=== PATIENT | female | born 1990 | race Caucasian/White ===

== ENCOUNTER 2020-09-13 11:45 | Emergency (ER) | payer OTHER, SELFPAY ==
[2020-09-13 11:54] VITALS: BP 124/94; PULSE 64; RESP 16; TEMP 36.9; O2SAT 99
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
== END 2020-09-13 12:31 | disposition home or self-care (01) ==
PROVIDERS: Emergency Provider Nurse Practitioner
DX: M25.511 Pain in right shoulder (principal)
CPT/HCPCS: 99213; G0463

== ENCOUNTER 2021-02-15 12:15 | Emergency (ER) | payer OTHER, SELFPAY ==
[2021-02-15 12:22] VITALS: BP 128/79; PULSE 86; RESP 16; TEMP 37.9; O2SAT 99
--- NOTE | 2021-02-15 13:21 | ED.EAR ---
HPI - Ear Problem General Chief complaint: Ear Stated complaint: ear pain Time Seen by Provider: 02/15/21 13:21 Source: patient Mode of arrival: ambulatory Limitations: no limitations History of Present Illness HPI Narrative: 30-year-old female presenting for complaint of bilateral ear pain, sinus congestion and pressure, and headache. Onset yesterday. Endorses 1 episode of vomiting today. She denies nausea, cough, shortness of breath, sore throat, fever or chills at this time. She has not taken anything for symptoms. MD Complaint: ear pain Related Data Allergies Allergy/AdvReac Type Severity Reaction Status Date / Time No Known Allergies Allergy Unverified 02/15/21 12:42 Review of Systems Review of Systems: CONSTITUTIONAL: Denies malaise, chills, sweats, fever. EYES: Denies visual changes, redness, or discharge. ENT: Reports rhinorrhea, congestion, sinus pain, otalgia CARDIOVASCULAR: Denies chest pain, palpitations, or edema. RESPIRATORY: Denies cough, sob; endorses post nasal drainage. GASTROINTESTINAL: Denies abdominal pain, nausea, vomiting, diarrhea SKIN: Denies rash or itching. MUSCULOSKELETAL: Denies myalgia. NEUROLOGIC: Denies headache. PMFSH Comments At time of signature, I have reviewed and agree with nursing past medical, surgical, social and family history unless otherwise noted. Please see nursing chart for further information. There is no relevant family history pertinent to the presenting complaint Exam Narrative: GENERAL: Ill-appearing, nontoxic no acute distress. HEAD: Normocephalic EYES: PERRLA, conjunctivae clear ENT: Mucous membranes moist. TM pearly meza with dull light reflex bilaterally, bilateral effusion; no tragal tenderness. Oropharynx erythematous without lesions. Tonsils enlarged and without exudate, no drooling, no hoarseness, no trismus, uvula midline. NECK: Supple. No lymphadenopathy CHEST: Clear to auscultation, breath sounds equal. No wheezing, rhonchi, rales, or stridor. No respiratory distress, speaks in full sentences. HEART: Regular rate and rhythm. No murmur heard. SKIN: Warm, dry, no rash. NEURO: Alert and oriented x3. PSYCH: Normal mood and affect Course Course Emergency Course: Patient is aware of diagnosis, understands and agrees to treatment plan. Anticipatory guidance given. Patient agrees to follow-up as directed and is aware of reasons to seek care at the emergency department. Portions of this record may have been created with voice recognition software Level of Care: Express Care Visit Vital Signs Vital signs: Vital Signs Temperature 100.2 F H 02/15/21 12:22 Pulse Rate 86 02/15/21 12:22 Respiratory Rate 16 02/15/21 12:22 Blood Pressure 128/79 02/15/21 12:22 Pulse Oximetry 99 02/15/21 12:22 Temperature 100.2 F H 02/15/21 12:22 Pulse Rate 86 02/15/21 12:22 Respiratory Rate 16 02/15/21 12:22 Blood Pressure 128/79 02/15/21 12:22 Pulse Oximetry 99 02/15/21 12:22 Reviewed Medical Decision Making Vital Signs Vital Signs: Vital Signs Temperature 100.2 F H 02/15/21 12:22 Pulse Rate 86 02/15/21 12:22 Respiratory Rate 16 02/15/21 12:22 Blood Pressure 128/79 02/15/21 12:22 Pulse Oximetry 99 02/15/21 12:22 Temperature 100.2 F H 02/15/21 12:22 Pulse Rate 86 02/15/21 12:22 Respiratory Rate 16 02/15/21 12:22 Blood Pressure 128/79 02/15/21 12:22 Pulse Oximetry 99 02/15/21 12:22 Discharge Plan Discharge Clinical Impression: Otalgia, Acute rhinosinusitis Patient Disposition: Home, Self-Care Condition: Stable Instructions: Antibiotic Form, Rhinosinusitis (DC) Additional Instructions: Rest. Drink plenty of fluids. Tylenol 1000mg every 8 hours as needed [id number] Zyrtec, Flonase, saline spray as needed. Return if symptoms worsen. Prescriptions: New cetirizine [Zyrtec] 10 mg tablet 10 mg PO DAILY PRN (Reason: congestion) Qty: 10 RF: 0 fluticasone propionat
== END 2021-02-15 13:38 | disposition home or self-care (01) ==
PROVIDERS: Emergency Provider Nurse Practitioner Family
DX: H92.03 Otalgia, bilateral (principal); J00 Acute nasopharyngitis [common cold]; J01.90 Acute sinusitis, unspecified
CPT/HCPCS: 99213; G0463

== ENCOUNTER 2021-02-21 12:39 | Emergency (ER) | payer OTHER, SELFPAY ==
--- NOTE | 2021-02-21 12:48 | ED.DENTAL ---
HPI - Dental/Oral General Chief complaint: Dental/Oral Stated complaint: tooth pain Time Seen by Provider: 02/21/21 13:08 Mode of arrival: ambulatory Limitations: no limitations History of Present Illness HPI Narrative: 30-year-old female presents concern for dental pain. Reports she thought she had a sinus problems but the pain has now radiated to her teeth and jaws. She reports problem with bad teeth. She reports she has been taking Tylenol. She reports she has a very bad taste in her mouth. She denies fever, difficulty swallowing. MD Complaint: tooth pain Related Data Allergies Allergy/AdvReac Type Severity Reaction Status Date / Time No Known Allergies Allergy Verified 02/21/21 13:06 Review of Systems Review of Systems: CONSTITUTIONAL: Denies malaise, chills, sweats, or fever. EYES: Denies visual changes ENT: Denies rhinorrhea, congestion, sinus pain, otalgia or sore throat. Reports generalized dental pain CARDIOVASCULAR: Denies chest pain, palpitations RESPIRATORY: Denies cough or dyspnea. SKIN: Denies rash or itching. MUSCULOSKELETAL: Denies myalgia. NEUROLOGIC: Denies numbness, weakness, or headache. All systems reviewed & are unremarkable except as noted in HPI and below PMFSH Comments At time of signature, agree with nursing past medical, surgical, social and family history. There is no relevant family history pertinent to the presenting complaint Exam Narrative: GENERAL: Well-appearing, well-nourished, and in no acute distress. HEAD: Normocephalic, atraumatic. EYES: PERRLA, sclera clear ENT: Nares clear. Mucous membranes moist. Oropharynx without erythema or lesions. Tonsils not enlarged and without exudate. Many missing teeth, broken teeth, caries NECK: Supple. No lymphadenopathy. CHEST: No respiratory distress. Speaks in full sentences. HEART: Regular rate and rhythm. SKIN: Warm, dry, no visible rash. NEURO: Alert and oriented x3. PSYCH: Normal mood and affect Course Course Emergency Course: Patient is aware of diagnosis, understands and agrees to treatment plan. Anticipatory guidance given. Patient agrees to follow-up as directed and is aware of reasons to seek care at the emergency department. Portions of this record may have been created with voice recognition software Level of Care: Express Care Visit Vital Signs Vital signs: Vital Signs Temperature 98.2 F 02/21/21 13:00 Pulse Rate 100 01/16/22 13:00 Respiratory Rate 20 02/21/21 13:00 Blood Pressure 118/68 02/21/21 13:00 Pulse Oximetry 100 02/21/21 13:00 Temperature 98.2 F 02/21/21 13:00 Pulse Rate 100 02/21/21 13:00 Respiratory Rate 20 02/21/21 13:00 Blood Pressure 118/68 02/21/21 13:00 Pulse Oximetry 100 02/21/21 13:00 Reviewed. MDM - Dental/Oral MDM Narrative Medical decision making narrative: Patients pain and complaint coupled with physical findings are consistant with dentalgia. There are no focal signs of space occupying lesions that are compromising to the airway; no dysphagia, odynophagia, dysphonia, or dyspnea. No uvular deviation or soft palate edema. Patient is non-toxic appearing. The floor of the mouth is soft with no signs of Flavio's Angina; no induration below mandible, no neck pain. Patient is without trismus or drooling and able to swallow secretions. Patient is felt appropriate for discharge home with dental follow up. Differential Diagnosis Differential diagnosis: Likely gingival abscess, dental caries, toothache, dental abscess, fracture of tooth and aphthous ulcer Critical Care Time Critical Care Time Critical Care Time: No Discharge Plan Discharge Clinical Impression: Toothache Patient Disposition: Home, Self-Care Condition: Stable Instructions: Antibiotic Form, Toothache (ED) Additional Instructions: Take antibiotic as directed Avoid temperature extremes May apply heat or ice to the face Gentle brushing and flossing Alternate Tylenol and ibuprofe
[2021-02-21 13:00] VITALS: BP 118/68; PULSE 100; RESP 20; TEMP 36.8; O2SAT 100
== END 2021-02-21 13:25 | disposition home or self-care (01) ==
PROVIDERS: Emergency Provider Nurse Practitioner
DX: K08.89 Other specified disorders of teeth and supporting structures (principal)
CPT/HCPCS: 99213; G0463

== ENCOUNTER 2021-04-13 15:39 | Emergency (ER) | payer OTHER, SELFPAY ==
--- NOTE | ~2021-04-13 | XR_ITS ---
EXAMINATION: XR ankle LT min 3V EXAM DATE: 04/13/2021 16:27 INDICATION: felt pop while walking left lateral ankle TECHNIQUE: Left ankle frontal, lateral and oblique projections obtained and reviewed. There is no pr ior study for comparison. FINDINGS: The left ankle mortise appears intact. There are no acute fractures or dislocations ident ified. There is no subcutaneous gas. The soft tissue is unremarkable. There are no radiopaque for eign bodies. Small calcaneal spurs. IMPRESSION: No acute osseous findings. Reviewed, dictated and finalized at location A. [employer] IMPRESSION: No acute osseous findings.
[2021-04-13 16:02] VITALS: BP 138/83; PULSE 71; RESP 16; TEMP 37.3; O2SAT 99
--- NOTE | 2021-04-13 16:04 | ED.LOWEXIN ---
HPI - Extremity Injury (Lower) General Chief Complaint: Extremity Injury, Lower Stated Complaint: left foot pain Time Seen by Provider: 04/13/21 16:04 Source: patient Mode of arrival: ambulatory Limitations: no limitations History of Present Illness HPI Narrative: 30 yo F presents with pain to L lateral ankle. Was walking in [employer] [place] yesterday and felt pop to L ankle twice and then had pain. Has been limping since then. Ambulatory with limp. No significant swelling noted. ROM intact. Pt would like x-ray. concerned for fracture. All systems reviewed and negative except as noted above. Related Data Allergies Allergy/AdvReac Type Severity Reaction Status Date / Time No Known Allergies Allergy Verified 04/13/21 16:17 Review of Systems Review of Systems: CONSTITUTIONAL: Denies fever, chills, or sweats. EYES: Denies visual changes, redness, or discharge. ENT: Denies rhinorrhea, congestion, sore throat, or otalgia. CARDIOVASCULAR: Denies chest pain, palpitations, or edema. RESPIRATORY: Denies cough or dyspnea. GASTROINTESTINAL: Denies abdominal pain, nausea, vomiting, or diarrhea. GENITOURINARY: Denies dysuria or hematuria. SKIN: Denies rash or itching. MUSCULOSKELETAL: Denies back pain, joint pain, or myalgia. Pain to left lateral ankle. NEUROLOGIC: Denies headache, numbness, or weakness. PSYCHIATRIC: Denies anxiety or depression. All other systems reviewed are negative, except as documented in HPI. PMFSH Comments At time of signature, agree with nursing past medical, surgical, social and family history. There is no relevant family history pertinent to the presenting complaint. Exam Narrative: GENERAL: This is a well-nourished, well-developed patient, in no apparent distress. HEAD: normocephalic, atraumatic. EYES: PERRL. Sclera clear/white. Vision is grossly intact. EARS: External ears normal, auditory canals clear and without drainage, TMs normal without perforation. Hearing grossly intact. NOSE: External nose normal with no obvious nasal discharge, nares without redness, no rhinorrhea. THROAT: Mucous membranes moist, posterior pharynx clear. NECK: Neck supple, non-tender without lymphadenopathy, masses or thyromegaly. CARDIOVASCULAR: Regular rate and rhythm without murmurs, gallops, or rubs. RESPIRATORY: Clear to auscultation. Breath sounds equal bilaterally. No wheezes, rales, or rhonchi. GASTROINTESTINAL: Abdomen soft, non-tender, nondistended. Bowel sounds are active. No hepato-splenomegaly, or palpable masses. No guarding. SKIN: warm, Dry, intact with no suspicious lesions or rash, good texture and turgor. NEURO: awake, alert, and oriented to person, place and time. There were no obvious focal neurologic abnormalities. EXTREMITIES: No joint tenderness, effusion, or edema noted. No calf tenderness. Negative Homans sign bilaterally. Tenderness to lateral aspect of left ankle. No swelling noted. Normal range of motion. BACK: Nontender without deformity. No CVA tenderness. Course Course Level of Care: Express Care Visit Vital Signs Vital signs: Vital Signs Temperature 37.3 C 04/13/21 16:02 Pulse Rate 71 04/13/21 16:02 Respiratory Rate 16 04/13/21 16:02 Blood Pressure 138/83 04/13/21 16:02 Pulse Oximetry 99 04/13/21 16:02 Temperature 37.3 C 04/13/21 16:02 Pulse Rate 71 04/13/21 16:02 Respiratory Rate 16 04/13/21 16:02 Blood Pressure 138/83 04/13/21 16:02 Pulse Oximetry 99 04/13/21 16:02 Reviewed MDM - Extremity Injury (Lower) MDM Narrative Medical decision making narrative: Patient is aware of diagnosis, understands and agrees to treatment plan. Anticipatory guidance given. Patient agrees to follow-up as directed and is aware of reasons to seek care at the emergency department. Portions of this record may have been created with voice recognition software Imaging Data Attestation: I personally reviewed and interpreted this imaging study as follows: My impression: Agree with
== END 2021-04-13 16:55 | disposition home or self-care (01) ==
PROVIDERS: Emergency Provider Nurse Practitioner Family
DX: S93.402A Sprain of unspecified ligament of left ankle, initial encounter (principal); S96.912A Strain of unspecified muscle and tendon at ankle and foot level, left foot, initial encounter; X58.XXXA Exposure to other specified factors, initial encounter
CPT/HCPCS: 73610; 99213; G0463

== ENCOUNTER 2021-05-03 16:41 | Emergency (ER) | payer OTHER, SELFPAY ==
--- NOTE | ~2021-05-03 | XR_ITS ---
EXAMINATION: XR shoulder LT min 2V DATE: 05/03/2021 17:08 INDICATION: Left shoulder injury. TECHNIQUE: 2 views of left shoulder were obtained. COMPARISON: None. FINDINGS: Bone alignment is normal. No fracture. There is an os acromiale. Joint spaces are normal. IMPRESSION: 1. No fracture. Reviewed, dictated and finalized at location A. IMPRESSION: 1. No fracture.
[2021-05-03 16:49] VITALS: BP 144/88; PULSE 70; RESP 16; TEMP 37.1; O2SAT 99
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
== END 2021-05-03 17:26 | disposition home or self-care (01) ==
PROVIDERS: Emergency Provider Nurse Practitioner
DX: S46.912A Strain of unspecified muscle, fascia and tendon at shoulder and upper arm level, left arm, initial encounter (principal); V49.60XA Unspecified car occupant injured in collision with unspecified motor vehicles in traffic accident, initial encounter
CPT/HCPCS: 73030; 99213; G0463

== ENCOUNTER 2023-02-09 16:54 | Emergency (ER) | payer OTHER, SELFPAY ==
--- NOTE | ~2023-02-09 | XR_ITS ---
EXAMINATION: XR shoulder LT min 2V DATE: 02/09/2023 18:08 INDICATION: Left shoulder injury and pain. TECHNIQUE: 4 views of left shoulder were obtained. COMPARISON: Left shoulder radiographs 05/03/2021 FINDINGS: Bone alignment is normal. No fracture. There is an os acromiale. There is mild osteoarthrit is of glenohumeral joint characterized by a tiny osteophyte. Acromioclavicular joint is normal. IMPRESSION: 1. Mild osteoarthritis of glenohumeral joint. Reviewed, dictated and finalized at location E. CLUB MAK[employer]
--- NOTE | ~2023-02-09 | XR_ITS ---
EXAMINATION: XR shoulder RT min 2V DATE: 02/09/2023 18:08 INDICATION: Right shoulder injury and pain. TECHNIQUE: 4 views of right shoulder were obtained. COMPARISON: None. FINDINGS: Bone alignment is normal. No fracture. Joint spaces are normal. IMPRESSION: 1. Normal right shoulder. Reviewed, dictated and finalized at location E. CAST SUPERVISOR IMPRESSION: 1. Normal right shoulder.
[2023-02-09 17:05] VITALS: BP 142/81; PULSE 75; RESP 16; O2SAT 100
--- NOTE | 2023-02-09 18:08 | ED.UPPEXIN ---
HPI - Extremity Injury (Upper) General Chief Complaint: Extremity Injury, Upper Stated Complaint: shoulder pain Time Seen by Provider: 02/09/23 17:23 Source: patient Mode of arrival: ambulatory Limitations: no limitations History of Present Illness HPI narrative: Patient is a 32-year-old female who presents to the ED with report of bilateral shoulder pain. Patient reports she attempted to help her lift a motor in his truck yesterday when the engine fell and patient felt a pulling pain in both of her shoulders. Pain persisted into today, worse with any movement. Patient was unable to go to work today. Denies any numbness. Reports intermittent tingling in arms. Denies weakness. Denies neck or back pain. Patient has not tried anything for pain. Related Data Allergies Allergy/AdvReac Type Severity Reaction Status Date / Time No Known Allergies Allergy Verified 04/13/21 16:17 Review of Systems Review of Systems: CONSTITUTIONAL: Denies fever, chills, or sweats. MUSCULOSKELETAL: See HPI. NEUROLOGIC: See HPI. All systems reviewed & are unremarkable except as noted in HPI and below PMFSH Past Medical History Medical History Patient denies medical problems Surgical History Surgical History No pertinent past surgical history Social History Social History Living arrangements: with family Gender identity (if verbalized by the patient): Female Exam Narrative: GENERAL: Well appearing, well-nourished, non-toxic, in no acute distress. HEAD: Normocephalic, atraumatic. RESPIRATORY: Airway patent, respirations nonlabored. CARDIOVASCULAR: Regular rate and rhythm. MUSCULOSKELETAL: Moves all extremities. Mild limited flexion and abduction range of motion of bilateral shoulders due to pain. TTP over anterior shoulder joints bilaterally, worse on R. Sensation intact. Strength equal ana. SKIN: Warm, dry, normal color. NEURO: A&O X3. Speech clear. Cranial nerves II-XII grossly intact. No ataxic movements. PSYCHIATRIC: Appropriate mood and affect. Normal interaction. Course Vital Signs Vital signs: Vital Signs Pulse Rate 75 02/09/23 17:05 Respiratory Rate 16 02/09/23 17:05 Blood Pressure 142/81 H 02/09/23 17:05 Pulse Oximetry 100 02/09/23 17:05 Oxygen Delivery Room Air 02/09/23 17:05 Pulse Rate 65 02/09/23 18:45 Respiratory Rate 16 02/09/23 18:45 Blood Pressure 131/75 02/09/23 18:45 Pulse Oximetry 96 02/09/23 18:45 Oxygen Delivery Room Air 02/09/23 17:05 MDM - Extremity Injury (Upper) MDM Narrative Medical decision making narrative: Patient presented ED with bilateral shoulder pain after attempting to lift something heavy yesterday when it fell. Neurologically intact. No gross deformities. Will obtain imaging and attempt pain control. Patient wanting work note. Bilateral shoulder x-rays negative. No acute fracture. Patient updated on imaging results. D/C home. Will prescribe a few muscle relaxers and refer to orthopedic information for follow-up. Given return precautions. Medical Records Attestation: I reviewed the patient's medical records. Imaging Data Attestation: I personally reviewed and interpreted this imaging study as follows: Radiologist's impression: ITS Impressions Shoulder X-Ray 02/09/23 18:09 IMPRESSION: 1. Mild osteoarthritis of glenohumeral joint. Shoulder X-Ray 02/09/23 18:10 IMPRESSION: 1. Normal right shoulder. Discharge Plan Discharge Clinical Impression: Strain of left shoulder Qualifiers: Encounter type: initial encounter Qualified Code(s): S46.912A - Strain of unspecified muscle, fascia and tendon at shoulder and upper arm level, left arm, initial encounter Strain of right shoulder Qualifiers: Encounter
[2023-02-09] MEDS: ACETAMINOPHEN 500 MG TABLET 1000 MG PO (18:17)
[2023-02-09] MEDS: KETOROLAC (*BKC) 60 MG/2 ML VIAL IM (18:18)
[2023-02-09] MEDS: CYCLOBENZAPRINE HCL 5 MG TABLET PO (18:18)
[2023-02-09 18:45] VITALS: BP 131/75; PULSE 65; RESP 16; O2SAT 96
== END 2023-02-09 19:01 | disposition home or self-care (01) ==
PROVIDERS: Emergency Provider Physician Assistant
DX: S46.912A Strain of unspecified muscle, fascia and tendon at shoulder and upper arm level, left arm, initial encounter (principal); S46.911A Strain of unspecified muscle, fascia and tendon at shoulder and upper arm level, right arm, initial encounter; M19.012 Primary osteoarthritis, left shoulder; X50.0XXA Overexertion from strenuous movement or load, initial encounter
CPT/HCPCS: 73030; 96372; 99284; A9270; J1885

== ENCOUNTER 2023-12-03 18:17 | Emergency (ER) | payer OTHER, SELFPAY ==
[2023-12-03 18:19] VITALS: BP 143/73; PULSE 65; RESP 17; TEMP 36.6; O2SAT 98
--- NOTE | 2023-12-03 21:08 | ED.BACK ---
HPI - Back Pain/Injury General Chief Complaint: Back Pain/Injury Stated Complaint: back pain Time Seen by Provider: 12/03/23 20:50 Source: patient Mode of arrival: ambulatory Limitations: no limitations History of Present Illness HPI Narrative: Patient presents with acute onset low back pain she noticed when she woke up on Monday. She denies any specific injury or trauma. 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 she describes it as a pulling pain. She has not been incontinent of bowel or bladder. Denies saddle anesthesia, IV drug use, chronic steroids, fever, or cancer. No paresthesias. It does not radiate. At 2:00 p.m. she took 2 500 mg tablets of acetaminophen. Denies any dysuria hematuria. patient does not have a primary care physician. 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 HEAD: Normocephalic, atraumatic. EYES: Non injected, non icteric ENT: Nares clear, no rhinorrhea or epistaxis. poor dentition with frontal fractured teeth NECK: Supple. CHEST: Speaking in full sentences. No respiratory distress. HEART: Regular rate and rhythm. . ABDOMEN: Soft, nondistended. EXTREMITIES: Normal range of motion. No lower extremity edema. Straight leg test negative. 5/5 strength with bilateral dorsiflexion, plantar flexion, knee flexion and extension, hip flexion, abduction, and adduction though she does experience slight exacerbation of pain with hip adduction. BACK: Nontender to palpation of midline thoracic and lumbar spine which do not have bony step-offs. Mild paravertebral tenderness bilaterally. Patient able to demonstrate flexion extension of the lumbar spine though experiences some exacerbation pain for flexion. also demonstrates rotational movement and side bends SKIN: Warm, dry, no rash. NEURO: No focal deficits. Alert and oriented x3. Sensation intact throughout bilateral lower extremities. PSYCH: Normal mood and affect. Course Vital Signs Vital signs: Vital Signs Temperature 97.8 F 12/03/23 18:19 Pulse Rate 65 12/03/23 18:19 Respiratory Rate 17 12/03/23 18:19 Blood Pressure 143/73 H 12/03/23 18:19 Pulse Oximetry 98 12/03/23 18:19 Oxygen Delivery Room Air 12/03/23 18:19 Temperature 97.8 F 12/03/23 18:19 Pulse Rate 65 12/03/23 18:19 Respiratory Rate 17 12/03/23 18:19 Blood Pressure 143/73 H 12/03/23 18:19 Pulse Oximetry 98 12/03/23 18:19 Oxygen Delivery Room Air 12/03/23 18:19 MDM - Back Pain/Injury MDM Narrative Medical decision making narrative: Patient presents with acute low back pain starting when she woke up on Monday. In the emergency department there afebrile with vital signs notable for mild hypertension. Back has no deformities. No tenderness is noted on palpation of the spinous processes which are midline. Patient demonstrates flexion, extension, and [id number] rotation of the lumbar spine. Sensation to the lower extremities is normal bilaterally. Dorsi/plantar flexion is normal bilaterally. Straight leg raise test is negative bilaterally. They do not have any other red flags for fracture, malignancy, infection (e.g. spinal epidural abscess), or aortic/vascular: Age, no trauma, not on chronic steroids, no cancer, no fever, IV drug use, abdominal pain, or urinary symptoms. Given this, will defer further imaging at this time. patient given analgesic medication in the emergency department and discharged with prescription for multimodal pain management. We discussed that the combination of medications that target pain, inflammation, and muscles are min to allow balance of both rest as well as the ability to keep moving and perform stretching exercises. Patient provided contact information for a primary care physician as she does not have 1. She is given strict emergency department return precautions. Patient verifies understanding and is amenable with the plan. Provided work note Differential Diagnosis Differential diagnosis: Likely lumbar radiculopathy, sciatica and strain of lumbar region Discharge Plan Discharge Clinical Impression: Strain of lumbar region Patient Disposition: Home, Self-Care Condition: Stable Instructions: Antibiotic Form, Acute Low Back Pain (ED), Lower Back Exercises (ED) Additional Instructions: Return to the ER if you have increased pain in your back, you develop lower extremity weakness/numbness/paralysis, you have numbness or tingling in your private parts, or you are unable to control your ability to urinate/stool. because you do not have a primary care physician the name of a doctor is listed below. take the combination of medications as prescribed as a multimodal pain management strategy to help you balance both rest as well as continuing to be active and perform exercises. Prescriptions: New lidocaine 4 % adhesive patch,medicated 1 patch topical DAILY PRN (Reason: pain) Qty: 5 0RF ibuprofen 600 mg tablet 600 mg PO TID PRN (Reason: pain) Qty: 30 0RF acetaminophen 500 mg capsule 1,000 mg PO Q6H PRN (Reason: pain) Qty: 30 0RF methocarbamol 750 mg tablet 750 mg PO HS Qty: 7 0RF No Action baclofen 10 mg tablet 10 mg PO TID Qty: 12 0RF ibuprofen 600 mg tablet 600 mg PO TID PRN (Reason: pain) Qty: 30 0RF naproxen 500 mg tablet 500 mg PO BID PRN (Reason: pain) Qty: 20 0RF cyclobenzaprine 5 mg tablet 5 mg PO TID PRN (Reason: muscle spasm) Qty: 10 0RF Follow-up/Referrals: Anatoliy Zhang MD [Physician] - ( Family practice) PHYSICIAN,ASSOCIATE PROFESSOR OF LIBRARY MEDIA [Primary Care Provider] - Stand Alone Forms: Work/School Release IP Time of Disposition: 21:20
[2023-12-03] MEDS: HYDROcodone/acetaminophen (*CRX) 5-325 MG TABLET 1 TAB PO (21:49)
[2023-12-03] MEDS: KETOROLAC 30 MG/ML VIAL (*BKC) 15 MG IM (21:49)
[2023-12-03] MEDS: LIDOCAINE 5% PATCH 1 PATCH TRANSDERM (21:49)
[2023-12-03 21:58] VITALS: BP 144/68; PULSE 65; RESP 17; TEMP 37.1; O2SAT 98
== END 2023-12-03 22:28 | disposition home or self-care (01) ==
PROVIDERS: Emergency Provider Student in an Organized Health Care Education/Training Program
DX: S39.012A Strain of muscle, fascia and tendon of lower back, initial encounter (principal); X58.XXXA Exposure to other specified factors, initial encounter
CPT/HCPCS: 96372; 99283; A9270; J1885

== ENCOUNTER 2023-12-30 18:31 | Emergency (ER) | payer OTHER, SELFPAY ==
--- NOTE | ~2023-12-30 | CT_ITS ---
EXAMINATION: CT abdomen pelvis w con DATE: 12/30/2023 19:29 INDICATION: Bilateral low abdominal pain TECHNIQUE: Computed tomography (CT) of the abdomen and pelvis was performed with 100 CC Omnipaque 350 intravenous contrast. Automated exposure control and iterative reconstruction technique were employe d. Exam dose: 1885.56 mGy-cm total exam DLP. COMPARISON: None. FINDINGS: The lung bases are clear. Normal heart size. No pericardial or pleural effusion. There is diffuse hepatic steatosis. No hepatic, splenic, pancreatic, and adrenal or renal space occup josr mass lesion is evident. The gallbladder is unremarkable. No bile duct or pancreatic duct dilatation. No renal mass lesion or urinary tract calculus or hydroureteronephrosis. Normal caliber of the abdominal aorta. No intraperitoneal or retroperitoneal or pelvic mass lesion or adenopathy or ascites. The urinary bladder is unremarkable. Normal appendix. No bowel obstruction, bowel wall thickening, pneumatosis or intraperitoneal free air is detected. Uterine nabothian cysts measuring up to 17 x 19.8 cm. Small fat-containing umbilical hernia. Included skeletal structures are unremarkable. IMPRESSION: Hepatic steatosis Normal appendix Prominent uterine cervical nabothian cysts Reviewed, dictated and finalized at Location [facility]. Reviewed, dictated and finalized at location A. [employer]
[2023-12-30 18:46] VITALS: BP 129/75; PULSE 72; RESP 19; TEMP 36.6; O2SAT 96
[2023-12-30 18:49] LABS: Basophils Percent Auto 0.4 % (0.2-1.2); Eosinophils Absolute Auto 0.1 K/mm3 (0-0.3); Eosinophils Percent Auto 0.8 % (0-4.4); Hematocrit 41.9 % (37.0-47.0); Immature Granulocyte Absolute 0.02 K/mm3 (0.00-0.031); Immature Granulocyte Percent A 0.3 % (0-0.5); Lymphocytes Absolute Auto 3.15 K/mm3 (0.9-3.2); Lymphocytes Percent Auto 40.3 % (18.3-44.2); Mean Corpuscular HGB Conc 33.4 g/dl (32-36); Mean Corpuscular Hemoglobin 28.7 pg (26-34); Mean Platelet Volume 11.4 fl (7.4-10.4); Monocytes Absolute Auto 0.6 K/mm3 (0.1-0.6); Neutrophils Percent Auto 51.2 % (45.5-73.1); Platelet Count Result 204 k/mm3 (150-375); Red Blood Count 4.87 M/mm3 (4.2-5.4); Red Cell Distribution Width 12.9 % (11.5-14.5); White Blood Count 7.8 K/mm3 (4.5-10.0)
[2023-12-30 19:04] LABS: Alanine Aminotransferase 40 U/L (6-35); Albumin Level 4.5 g/dL (3.5-5.1); Alkaline Phosphatase 62 U/L (38-126); Anion Gap 7 mmol/L (4-12); Aspartate Amino Transferase 33 U/L (14-36); Bilirubin,Total 0.4 mg/dL (0.2-1.3); Blood Urea Nitrogen 11 mg/dL (7-17); Calcium 9.4 mg/dL (8.4-10.2); Carbon Dioxide 29 mmol/L (22-30); Chloride 103 mmol/L (98-107); Estimated Glomerular Filt Rate > 60; Glucose 106 mg/dL (65-110); Lipase 104 U/L (23-300); Potassium 3.7 mmol/L (3.4-5.0); Sodium 139 mmol/L (137-145)
[2023-12-30 19:06] LABS: BEDSIDEPREGUCG Negative (Negative)
[2023-12-30] MEDS: ACETAMINOPHEN 500 MG TABLET 1000 MG PO (19:07)
[2023-12-30] MEDS: DICYCLOMINE HCL 10 MG CAPSULE 20 MG PO (19:07)
[2023-12-30 19:15] LABS: Add Urine Microscopic? YES; Appearance Urine Cloudy (Clear); Bacteria Urine 2+ /hpf; Bilirubin Urine Negative (Negative); Blood Urine Negative (Negative); Color Urine Yellow (Yellow); Glucose Urine UA Negative (Negative); Ketones Urine Negative (Negative); Leukocyte Esterase Ur Negative LEU/UL (Negative); Need Manual Microscopic Reviewed; Nitrate Urine Negative (Negative); Non Pathogenic Casts 0-2; Protein Urine Negative (Negative); RBC Urine 0-2 /hpf (0-2); Specific Grav Ur 1.029 (1.001-1.035); Squamous Epithelial Cell Urine Many /hpf (Few); pH Urine 5.5 (5.0-9.0)
--- NOTE | 2023-12-30 20:12 | ED.ABDPAIN ---
HPI - Abdominal Pain General Chief Complaint: Abdominal Pain Stated Complaint: abd pain Time Seen by Provider: 12/30/23 18:32 Source: patient Mode of arrival: ambulatory Limitations: no limitations History of Present Illness HPI narrative: Patient is a 33-year-old female who presents the ED with report of lower abdominal pain. Patient reports having diffuse bilateral lower abdominal pain, radiating around to her lower back for the last 3 days. Denies aggravating or alleviating symptoms. Has not tried anything for pain. Denies nausea, vomiting, diarrhea, constipation, urinary complaints, fevers. Denies history of similar pain. Related Data Allergies Allergy/AdvReac Type Severity Reaction Status Date / Time No Known Allergies Allergy Verified 12/03/23 18:19 Review of Systems Review of Systems: All systems reviewed & are unremarkable except as noted in HPI. 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 HEAD: Normocephalic, atraumatic. ENT: Poor dentition. RESPIRATORY: Airway patent, respirations nonlabored. Clear to auscultation bilaterally, no rales, rhonchi, wheezing. CARDIOVASCULAR: Regular rate and rhythm without murmurs, rubs, or gallops. ABDOMINAL: Soft, diffuse tenderness throughout ana lower quadrants, no rebound, nondistended. Normoactive BS. MUSCULOSKELETAL: Moves all extremities. No gross deformities. SKIN: Warm, dry, normal color. NEURO: A&O X3. Speech clear. No ataxic movements. PSYCHIATRIC: Appropriate mood and affect. Normal interaction. Course Vital Signs Vital signs: Vital Signs Temperature 97.9 F 12/30/23 18:46 Pulse Rate 72 12/30/23 18:46 Respiratory Rate 19 12/30/23 18:46 Blood Pressure 129/75 12/30/23 18:46 Pulse Oximetry 96 12/30/23 18:46 Temperature 97.9 F 12/30/23 18:46 Pulse Rate 76 12/30/23 21:28 Respiratory Rate 15 12/30/23 21:28 Blood Pressure 121/82 12/30/23 21:28 Pulse Oximetry 98 12/30/23 21:28 MDM - Abdominal Pain MDM Narrative Medical decision making narrative: Patient presented to ED with 3 day history of lower abdominal pain, no significant associated symptoms. Patient has not tried anything for pain prior to arrival. Vital signs are stable. Patient is in no acute distress. Laboratory studies are unremarkable. No leukocytosis. Stable electrolytes. Normal LFTs and lipase. Urine with possible infection with 11-20 white blood cell count, 2+ urine bacteria. Will treat as this may be contributing to lower abd pain. Given first dose of keflex in the ED. CT scan of abdomen/pelvis showing fatty liver, otherwise no significant abnormalities. Does comment on nabothian cyst. No other pelvic abnormalities noted. Patient given Tylenol, Bentyl, toradol in the ED. She is feeling much better on re-evaluation. Feel she is safe for discharge home at this time. No evidence of surgical abdomen on repeat examinations. Recommended patient to continue Tylenol/ibuprofen as needed for pain, follow-up with PCP. Given strict return precautions. She agrees with plan and is comfortable with D/C home. Discharged in stable condition. Medical Records Attestation: I reviewed the patient's medical records. Lab Data Attestation: I reviewed the patient's lab results. 12/30/23 18:43 12/30/23 18:43 Labs: Lab Results 12/30/23 12/30/23 12/30/23 Range/Units 18:43 18:52 19:02 WBC 7.8 (4.5-10.0) K/mm3 RBC 4.87 (4.2-5.4) M/mm3 Hgb 14.0 (12.0-15.0) g/dL Hct 41.9 (37.0-47.0) % MCV 86.0 (80-100) fl MCH 28.7 (26-34) pg MCHC 33.4 (32-36) g/dl RDW 12.9 (11.5-14.5) % Plt Count 204 (150-375) k/mm3 MPV 11.4 H (7.4-10.4) fl Immature Gran % (Auto) 0.3 (0-0.5) % Neut % (Auto) 51.2 (45.5-73.1) % Lymph % (Auto) 40.3 (18.3-44.2) % [place] % (Auto) 7.0 (2.6-8.5) % Eos % (Auto) 0.8 (0-4.4) % Baso % (Auto) 0.4 (0.2-1.2) % Lymph # (Auto) 3.15 (0.9-3.2) K/mm3 [place] # (Auto) 0.6 (0.1-0.6) K/mm3 Eos # (Auto) 0.1 (0-0.3) K/mm3 Baso # (Auto) 0.0 (0.0-0.1) K/mm3 Abs Immat Gran (auto) 0.02 (0.00-0.031) K/mm3 Absolute Neuts (auto) 4.0 (1.3-6.7) K/mm3 Absolute Nucleated RBC 0.000 (0.0-0.012) K/mm3 Nucleated RBC % 0.0 (0.0-0.2) % Sodium 139 (137-145) mmol/L Potassium 3.7 (3.4-5.0) mmol/L Chloride 103 (98-107) mmol/L Carbon Dioxide 29 (22-30) mmol/L Anion Gap 7 (4-12) mmol/L BUN 11 (7-17) mg/dL Creatinine 0.80 (0.7-1.0) mg/dL Estim Creat Clear Calc Not Reportable Estimated GFR > 60 (59 - ) Glucose 106 (65-110) mg/dL Calcium 9.4 (8.4-10.2) mg/dL Total Bilirubin 0.4 (0.2-1.3) mg/dL AST 33 (14-36) U/L ALT 40 H (6-35) U/L Alkaline Phosphatase 62 (38-126) U/L Total Protein 8.0 (6.3-8.2) g/dL Albumin 4.5 (3.5-5.1) g/dL Lipase 104 (23-300) U/L Urine Color Yellow (Yellow) Urine Appearance Cloudy H (Clear) Urine pH 5.5 (5.0-9.0) Ur Specific [place] 1.029 (1.001-1.035) Urine Protein Negative (Negative) mg/dL Urine Glucose (UA) Negative (Negative) mg/dL Urine Ketones Negative (Negative) mg/dL Ur Blood (Man) Negative (Negative) Urine Nitrate Negative (Negative) Urine Bilirubin Negative (Negative) Urine Urobilinogen 1.0 (<2.0) mg/dL Add Ur Microanalysis Reviewed Leukocyte Esterase Rfl Negative (Negative) RAMY/UL Urine RBC 0-2 (0-2) /hpf Urine WBC 11-20 H (0-3) /hpf Ur Squamous Epith Cells Many H (Few) /hpf Urine Bacteria 2+ H /hpf Urine Casts 0-2 POC Urine HCG, Qual Negative (Negative) Imaging Data Attestation: I personally reviewed and interpreted this imaging study as follows: Radiologist's impression: ITS Impressions Abdomen/Pelvis CT 12/30/23 19:31 IMPRESSION: Hepatic steatosis Normal appendix Prominent uterine cervical nabothian cysts Discharge Plan Discharge Clinical Impression: Intermittent lower abdominal pain UTI (urinary tract infection) Qualifiers: Urinary tract infection type: acute cystitis Hematuria presence: without hematuria Qualified Code(s): N30.00 - Acute cystitis without hematuria Patient Disposition: Home, Self-Care Condition: Stable Instructions: Antibiotic Form, Urinary Tract Infection in Women (ED), Abdominal Pain (ED) Additional Instructions: Continue Tylenol/ibuprofen as needed for pain. Stay well hydrated. Take antibiotics as prescribed for urinary tract infection. Follow-up with primary care doctor for further evaluation. Return to the ED if you experience worsening or severe pain, unable to keep down food or drink, persistent fevers, difficulty urinating, blood in urine, or any other symptoms of concern. Prescriptions: New cephalexin 500 mg capsule 500 mg PO Q6H 7 Days Qty: 28 0RF No Action baclofen 10 mg tablet 10 mg PO TID Qty: 12 0RF ibuprofen 600 mg tablet 600 mg PO TID PRN (Reason: pain) Qty: 30 0RF naproxen 500 mg tablet 500 mg PO BID PRN (Reason: pain) Qty: 20 0RF cyclobenzaprine 5 mg tablet 5 mg PO TID PRN (Reason: muscle spasm) Qty: 10 0RF lidocaine 4 % adhesive patch,medicated 1 patch topical DAILY PRN (Reason: pain) Qty: 5 0RF ibuprofen 600 mg tablet 600 mg PO TID PRN (Reason: pain) Qty: 30 0RF acetaminophen 500 mg capsule 1,000 mg PO Q6H PRN (Reason: pain) Qty: 30 0RF methocarbamol 750 mg tablet 750 mg PO HS Qty: 7 0RF Follow-up/Referrals: PHYSICIAN,VICE PRESIDENT MEDICAL AFFAIRS [Primary Care Provider] - Pedro Pablo Varner MD [Physician] - (PRIMARY CARE) Time of Disposition: 20:47
[2023-12-30] MEDS: KETOROLAC 30 MG/ML VIAL (*BKC) IV PUSH (20:45)
[2023-12-30] MEDS: CEPHALEXIN 500 MG CAPSULE PO (20:46)
[2023-12-30 21:28] VITALS: BP 121/82; PULSE 76; RESP 15; O2SAT 98
== END 2023-12-30 21:29 | disposition home or self-care (01) ==
PROVIDERS: Emergency Medicine; Emergency Provider Physician Assistant
DX: N30.00 Acute cystitis without hematuria (principal); K76.0 Fatty (change of) liver, not elsewhere classified; N88.8 Other specified noninflammatory disorders of cervix uteri
CPT/HCPCS: 36415; 74177; 80053; 81001; 81025; 83690; 85025; 87086; 96374; 99284; A9270; J1885; Q9967

== ENCOUNTER 2024-02-26 20:18 | Emergency (ER) | payer OTHER, SELFPAY ==
--- NOTE | ~2024-02-26 | XR_ITS ---
HISTORY: Ground level fall, arm pain COMPARISON: None TECHNIQUE: 2 views of the left forearm were performed FINDINGS: No acute or subacute fracture. Joint spaces are preserved and alignment is preserved. Soft tissues are unremarkable without foreign body or significant calcification. Normal mineralization. IMPRESSION: No acute fracture or dislocation Reviewed, dictated and finalized at location A. 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
[2024-02-26 20:49] VITALS: BP 154/87; PULSE 78; RESP 18; TEMP 36.4; O2SAT 100
--- NOTE | 2024-02-26 21:08 | PC.NURSE ---
Pt c/o right forearm pain, states she had a mechanical fall today and landed on her right arm. No deformity noted, pt is able to move fingers on right hand and denies any tingling. Pt ambulatory and A&O x 4, pt denies hitting her head or LOC
--- NOTE | 2024-02-26 21:10 | ED.FALL ---
HPI - Fall General Chief Complaint: Fall Stated Complaint: L arm injury from fall Time Seen by Provider: 02/26/24 21:10 Source: patient Mode of arrival: ambulatory Limitations: no limitations History of Present Illness HPI Narrative: This is a 33-year-old female who presents to the ED for chief complaint of a fall on ice today. Patient states that she fell onto her left forearm. She feels that she may have felt a pop in the elbow and the wrist. Denies numbness, weakness or any further injury. 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 MSK: Normal range of motion. No edema. SKIN: Warm, dry, no rash. NEURO: Alert and oriented x4. No focal deficits. PSYCH: Normal mood and affect. Course Vital Signs Vital signs: Vital Signs Temperature 97.5 F L 02/26/24 20:49 Pulse Rate 78 02/26/24 20:49 Respiratory Rate 18 02/26/24 20:49 Blood Pressure 154/87 H 02/26/24 20:49 Pulse Oximetry 100 02/26/24 20:49 Temperature 97.5 F L 02/26/24 20:49 Pulse Rate 83 02/26/24 21:28 Respiratory Rate 18 02/26/24 21:28 Blood Pressure 138/87 02/26/24 21:28 Pulse Oximetry 98 02/26/24 21:28 MDM - Fall MDM Narrative Medical decision making narrative: This is a 33-year-old female who presents to the ED for chief complaint of left arm injury that occurred today while slipping on the ice. Vitals are normal. Exam remarkable for the above. No overt signs of trauma. X-rays of the left humerus are negative for any acute findings. Pt will be discharged in stable condition. Return precautions given and supportive measures discussed. Pt is understanding and agreeable with plan for discharge and follow-up with PCP. Discharge Plan Discharge Clinical Impression: Contusion of forearm, left Patient Disposition: Home, Self-Care Condition: Stable Instructions: Antibiotic Form Additional Instructions: Exam is reassuring today. No fractures. Take Tylenol and ibuprofen as needed for pain control. If you have any new or worsening symptoms please return to the ER for further evaluation. Patient Language: Irish Prescriptions: No Action baclofen 10 mg tablet 10 mg PO TID Qty: 12 0RF ibuprofen 600 mg tablet 600 mg PO TID PRN (Reason: pain) Qty: 30 0RF naproxen 500 mg tablet 500 mg PO BID PRN (Reason: pain) Qty: 20 0RF cyclobenzaprine 5 mg tablet 5 mg PO TID PRN (Reason: muscle spasm) Qty: 10 0RF lidocaine 4 % adhesive patch,medicated 1 patch topical DAILY PRN (Reason: pain) Qty: 5 0RF ibuprofen 600 mg tablet 600 mg PO TID PRN (Reason: pain) Qty: 30 0RF acetaminophen 500 mg capsule 1,000 mg PO Q6H PRN (Reason: pain) Qty: 30 0RF methocarbamol 750 mg tablet 750 mg PO HS Qty: 7 0RF cephalexin 500 mg capsule 500 mg PO Q6H 7 Days Qty: 28 0RF Follow-up/Referrals: PHYSICIAN,TASSEL MAKER [Non-Staff] - Stand Alone Forms: Work/School Release IP Time of Disposition: 21:17
[2024-02-26 21:20] VITALS: RESP 18; O2SAT 98
[2024-02-26 21:28] VITALS: BP 138/87; PULSE 83; RESP 18; O2SAT 98
== END 2024-02-26 21:27 | disposition home or self-care (01) ==
LOC: ANHED 21:20
PROVIDERS: Emergency Provider Physician Assistant
DX: S50.12XA Contusion of left forearm, initial encounter (principal); W00.0XXA Fall on same level due to ice and snow, initial encounter
CPT/HCPCS: 73090; 99283

== ENCOUNTER 2024-05-16 20:34 | Emergency (ER) | payer OTHER, SELFPAY ==
[2024-05-16 20:36] VITALS: BP 144/79; PULSE 81; RESP 18; TEMP 36.8; O2SAT 99
== END 2024-05-16 20:40 | disposition left against medical advice (07) ==
DX: S09.90XA Unspecified injury of head, initial encounter (principal)
CPT/HCPCS: 99199

== ENCOUNTER 2024-05-28 16:44 | Emergency (ER) | payer OTHER, SELFPAY ==
[2024-05-28 16:45] VITALS: BP 140/72; PULSE 83; RESP 16; TEMP 36.6; O2SAT 98
--- NOTE | 2024-05-28 17:21 | ED_ITS ---
HPI - Headache General Chief Complaint: Headache Stated Complaint: elevated blood pressure, headache Time Seen by Provider: 05/28/24 16:57 Source: patient Mode of arrival: ambulatory Limitations: no limitations History of Present Illness HPI Narrative: This is a 33-year-old female who presents to the ED for chief complaint of headache x4 days. She states this is her typical migraine headache. States that is bilateral and radiates to the back for head. Endorses some photophobia. States she is normally able to treat this at home. She was concerned today because she your blood pressure [employer] and it read high. She states the blood pressure will read out at 137/81. Denies any exertion or provocative factors to the headache. Denies vision loss, speech change, numbness, weakness of the extremities. Denies dizziness, lightheadedness or syncope. Denies fevers, chills,, nausea, vomiting, neck pain, neck stiffness. 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 HEAD: Normocephalic, atraumatic. EYES: PERRLA and EOMI. ENT: Nares clear, no rhinorrhea or epistaxis. Mucous membranes moist. Oropharynx without tonsillar hypertrophy exudate or other lesions. NECK: Supple. No adenopathy or masses. CHEST: No respiratory distress. Clear to auscultation. No wheezes rales or rhonchi HEART: Regular rate and rhythm. No murmur heard. Normal peripheral pulses. ABDOMEN: Soft, nontender, nondistended, normal active bowel sounds. MSK: Normal range of motion. No edema. SKIN: Warm, dry, no rash. NEURO: Alert and oriented x4. No focal deficits. PSYCH: Normal mood and affect. Course Vital Signs Vital signs: Vital Signs Temperature 97.8 F 05/28/24 16:45 Pulse Rate 83 05/28/24 16:45 Respiratory Rate 16 05/28/24 16:45 Blood Pressure 140/72 05/28/24 16:45 Pulse Oximetry 98 05/28/24 16:45 Oxygen Delivery Room Air 05/28/24 16:45 Temperature 97.8 F 05/28/24 16:45 Pulse Rate 83 05/28/24 16:45 Respiratory Rate 16 05/28/24 16:45 Blood Pressure 140/72 05/28/24 16:45 Pulse Oximetry 98 05/28/24 16:45 Oxygen Delivery Room Air 05/28/24 16:45 MDM - Headache MDM Narrative Medical decision making narrative: This is a 33-year-old female who presents to the ED for chief complaint of headache and elevated blood pressure. Feels typical for her usual migraine. Vitals are normal. She was concerned over a blood pressure of 137 at the [employer] blood pressure machine. She feels reassured that she is not having a hypertensive emergency. She has no red flag signs for headache today. Offered treatment for migraine in the ER, however patient is deferring. She would like to go home and treat this headache as she normally would. Requesting work note. Patient will be discharged in stable condition. Supportive measures discussed and return precautions given. Patient is understanding and agreeable with plan for discharge with PCP follow-up. Differential Diagnosis Differential diagnosis: Likely migraine, tension headache, subarachnoid hemorrhage, headache, meningitis and sinusitis Discharge Plan Discharge Clinical Impression: Migraine Patient Disposition: Home Condition: Stable Instructions: Antibiotic Form Additional Instructions: Exam today is reassuring. Blood pressure slightly elevated but does not need any kind of emergent intervention. Please follow this with your primary care doctor as well as following with them on migraines. If you have any increase in headache, take 500 mg Tylenol and 600 mg ibuprofen immediately. If you have any new or worsening symptoms please return to the ER for further evaluation. Patient Language: Divehi Prescriptions: No Action baclofen 10 mg tablet 10 mg PO TID Qty: 12 0RF ibuprofen 600 mg tablet 600 mg PO TID PRN (Reason: pain) Qty: 30 0RF naproxen 500 mg tablet 500 mg PO BID PRN (Reason: pain) Qty: 20 0RF cyclobenzaprine 5 mg tablet 5 mg PO TID PRN (Reason: muscle spasm) Qty: 10 0RF lidocaine 4 % adhesive patch,medicated 1 patch topical DAILY PRN (Reason: pain) Qty: 5 0RF ibuprofen 600 mg tablet 600 mg PO TID PRN (Reason: pain) Qty: 30 0RF acetaminophen 500 mg capsule 1,000 mg PO Q6H PRN (Reason: pain) Qty: 30 0RF methocarbamol 750 mg tablet 750 mg PO HS Qty: 7 0RF cephalexin 500 mg capsule 500 mg PO Q6H 7 Days Qty: 28 0RF Follow-up/Referrals: PHYSICIAN,ACTIMIZE ARCHITECT [Primary Care Provider] - Stand Alone Forms: Work/School Release IP Time of Disposition: 17:24
== END 2024-05-28 17:34 | disposition home or self-care (01) ==
LOC: ANHED 17:29
PROVIDERS: Emergency Provider Physician Assistant
DX: G43.909 Migraine, unspecified, not intractable, without status migrainosus (principal)
CPT/HCPCS: 99283

== ENCOUNTER 2024-11-06 02:15 | Emergency (ER) | payer SELFPAY ==
--- NOTE | ~2024-11-06 | XR_ITS ---
Examination: XR chest 2V Clinical History: LEFT SIDE CHEST PAIN Comparison: None Technique: PA and Lateral Findings: Cardiomediastinal silhouette normal size and configuration. Lungs clear. No acute bony abnormality. IMPRESSION: 1. No acute cardiopulmonary findings. Reviewed, dictated and finalized at location R.
--- NOTE | 2024-11-06 02:21 | ECG_ITS ---
Test Date: 2024-11-06 02:24:07 Measurements Intervals [place] Rate: 71 P: 7 [place]: 135 QRS: -1 QRSD: 92 T: 3 QT: 391 QTc: 427 Interpretive Statements SINUS RHYTHM BORDERLINE R WAVE PROGRESSION, ANTERIOR LEADS BORDERLINE T WAVE ABNORMALITY- ANT/INF LEADS BASELINE ARTIFACT- I, II, AVR BORDERLINE ECG No previous ECG available for comparison Electronically Signed On 11-06-2024 06:21:34 CDT by Reese Milian D.O.
[2024-11-06 02:28] VITALS: BP 154/98; PULSE 72; RESP 18; TEMP 36.9; O2SAT 99
[2024-11-06 02:33] LABS: Hematocrit 39.5 % (37.0-47.0); Hemoglobin 12.6 g/dL (12.0-15.0); Immature Granulocyte Percent A 0.1 % (0-0.5); Lymphocytes Absolute Auto 2.21 K/mm3 (0.9-3.2); Mean Corpuscular HGB Conc 31.9 g/dl (32-36); Mean Corpuscular Hemoglobin 27.0 pg (26-34); Mean Corpuscular Volume 84.6 fl (80-100); Nucleated Red Blood Cells Absolute Auto 0.000 K/mm3 (0.0-0.012); Nucleated Red Blood Cells Perc 0.0 % (0.0-0.2); Platelet Count Result 179 k/mm3 (150-375); Red Blood Count 4.67 M/mm3 (4.2-5.4); White Blood Count 7.0 K/mm3 (4.5-10.0)
[2024-11-06 02:44] LABS: Alanine Aminotransferase 47 U/L (6-35); Albumin Level 4.3 g/dL (3.5-5.1); Alkaline Phosphatase 63 U/L (38-126); Anion Gap 9 mmol/L (4-12); Aspartate Amino Transferase 38 U/L (14-36); Bilirubin,Total 0.4 mg/dL (0.2-1.3); Blood Urea Nitrogen 10 mg/dL (7-17); Calcium 9.2 mg/dL (8.4-10.2); Carbon Dioxide 23 mmol/L (22-30); Chloride 106 mmol/L (98-107); Estimated Glomerular Filt Rate > 60; Glucose 123 mg/dL (65-110); Lipase 102 U/L (23-300); Potassium 3.8 mmol/L (3.4-5.0); Sodium 138 mmol/L (137-145); Total Protein 7.4 g/dL (6.3-8.2)
[2024-11-06 02:47] LABS: INR 1.0; Partial Thromboplastin Time 27.0 Seconds (22.3-36.8); Prothrombin Time 13.6 Seconds (11.1-14.7)
[2024-11-06 02:56] LABS: Troponin I < 0.012 ng/mL (0.000-0.034)
[2024-11-06] MEDS: MAG HYDROX/AL HYDROX/SIMETH 30 ML UDC PO (04:26)
[2024-11-06] MEDS: FAMOTIDINE 20 MG/2 ML VIAL IV PUSH (04:26)
--- NOTE | 2024-11-06 04:27 | ED.CHESTPAIN ---
HPI - Chest Pain General Chief Complaint: Chest Pain Stated Complaint: CHEST PAIN Time Seen by Provider: 11/06/24 03:54 History of Present Illness HPI narrative: 34-year-old otherwise healthy female aside from obesity presenting to the emergency department with left-sided chest pain and stomach pain. States it woke her from sleep at around midnight. She tried to take a hot shower and did not have any relief. She came to the ER. She states the pain is much better after she received aspirin. Denies any persistent pain, nausea, vomiting, fever, abdominal pain, back pain. Has not anything like this happened to her previously. No traumatic injuries. No falls or recent hospitalizations. Denies any cardiac or GI history to her knowledge. Does not take any medications. 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 Mucous membranes moist. NECK: Supple. CHEST: [Clear to auscultation. No respiratory distress.] HEART: [Regular rate and rhythm]. No murmur heard. [Normal peripheral pulses.] ABDOMEN: [Soft, nondistended], [nontender], [No rigidity or guarding] EXTREMITIES: Normal range of motion. [No edema.] SKIN: Warm, dry, no rash. NEURO: [No focal deficits]. Alert and oriented [x3.] PSYCH: [Normal mood and affect.] Course Vital Signs Vital signs: Vital Signs Temperature 36.9 C 11/06/24 02:28 Pulse Rate 72 11/06/24 02:28 Respiratory Rate 18 11/06/24 02:28 Blood Pressure 154/98 H 11/06/24 02:28 Pulse Oximetry 99 11/06/24 02:28 Oxygen Delivery Room Air 11/06/24 02:28 Temperature 36.9 C 11/06/24 02:28 Pulse Rate 62 11/06/24 06:56 Respiratory Rate 18 11/06/24 06:56 Blood Pressure 121/73 11/06/24 06:56 Pulse Oximetry 99 11/06/24 06:56 Oxygen Delivery Room Air 11/06/24 02:28 MDM - Chest Pain MDM Narrative Medical decision making narrative: 34-year-old otherwise healthy female aside from obesity presenting to the emergency department with left-sided chest pain and stomach pain. States it woke her from sleep at around midnight. She tried to take a hot shower and did not have any relief. She came to the ER. She states the pain is much better after she received aspirin. Denies any persistent pain, nausea, vomiting, fever, abdominal pain, back pain. Has not anything like this happened to her previously. No traumatic injuries. No falls or recent hospitalizations. Denies any cardiac or GI history to her knowledge. Does not take any medications. Vital signs show some mild hypertension but not severe. No tachycardia, fever, hypoxemia. Pain is not reproducible on palpation of the abdomen and chest wall. No shortness of breath, strong symmetric pulses. States the pain is significantly better since getting aspirin, to the hospital. Suspect gastritis, gastroenteritis, pneumonia, pneumothorax and low suspicion ACS. X-rays were obtained, cardiac workup underway, CBC, EKG, troponin, delta troponin, treatment regimen with Pepcid and Maalox given. Placed on cardiac cath technologist and re-evaluated. Cardiac workup was unremarkable. Serial troponins are negative. Vital signs normalized without any significant inventions. Given Pepcid Maalox and felt much better. LFTs chronically elevated. Safe for discharge home at this time with prescription for Pepcid Maalox as needed. Medical Records Data Attestation: I reviewed the patient's medical records. Lab Data Attestation: I reviewed the patient's lab results. 11/06/24 02:27 11/06/24 02:27 Labs: Lab Results 11/06/24 11/06/24 Range/Units 02:27 05:44 WBC 7.0 (4.5-10.0) K/mm3 RBC 4.67 (4.2-5.4) M/mm3 Hgb 12.6 (12.0-15.0) g/dL Hct 39.5 (37.0-47.0) % MCV 84.6 (80-100) fl MCH 27.0 (26-34) pg MCHC 31.9 L (32-36) g/dl RDW 13.9 (11.5-14.5) % Plt Count 179 (150-375) k/mm3 MPV 11.2 H (7.4-10.4) fl Immature Gran % (Auto) 0.1 (0-0.5) % Neut % (Auto) 57.4 (45.5-73.1) % Lymph % (Auto) 31.4 (18.3-44.2) % [place] % (Auto) 9.4 H (2.6-8.5) % Eos % (Auto) 1.3 (0-4.4) % Baso % (Auto) 0.4 (0.2-1.2) % Lymph # (Auto) 2.21 (0.9-3.2) K/mm3 [place] # (Auto) 0.7 H (0.1-0.6) K/mm3 Eos # (Auto) 0.1 (0-0.3) K/mm3 Baso # (Auto) 0.0 (0.0-0.1) K/mm3 Abs Immat Gran (auto) 0.01 (0.00-0.031) K/mm3 Absolute Neuts (auto) 4.0 (1.3-6.7) K/mm3 Absolute Nucleated RBC 0.000 (0.0-0.012) K/mm3 Nucleated RBC % 0.0 (0.0-0.2) % PT 13.6 (11.1-14.7) Seconds INR 1.0 APTT 27.0 (22.3-36.8) Seconds Sodium 138 (137-145) mmol/L Potassium 3.8 (3.4-5.0) mmol/L Chloride 106 (98-107) mmol/L Carbon Dioxide 23 (22-30) mmol/L Anion Gap 9 (4-12) mmol/L BUN 10 (7-17) mg/dL Creatinine 0.76 (0.7-1.0) mg/dL Estim Creat Clear Calc Not Reportable Estimated GFR > 60 (59 - ) Glucose 123 H (65-110) mg/dL Calcium 9.2 (8.4-10.2) mg/dL Total Bilirubin 0.4 (0.2-1.3) mg/dL AST 38 H (14-36) U/L ALT 47 H (6-35) U/L Alkaline Phosphatase 63 (38-126) U/L Troponin I < 0.012 < 0.012 (0.000-0.034) ng/mL Total Protein 7.4 (6.3-8.2) g/dL Albumin 4.3 (3.5-5.1) g/dL Lipase 102 (23-300) U/L Imaging Data Attestation: I personally reviewed and interpreted this imaging study as follows: My impression: Impressions Chest X-Ray 11/06/24 06:09 IMPRESSION: 1. No acute cardiopulmonary findings. Discharge Plan Discharge Clinical Impression: Gastritis, Chest pain Patient Disposition: Home Condition: Stable Instructions: Antibiotic Form, Chest Pain (ED), Gastritis (DC) Additional Instructions: Symptoms consistent with gastritis. Your cardiac enzymes are undetectable in your chest x-ray and EKG are reassuring. Follow-up with your primary care provider. We have prescribed some medications to help with this is a recurrent issue. Return with any severe symptoms or new issues/emergent concerns. Patient Language: Faroese Prescriptions: New alum-mag hydroxide-simeth [Maalox Advanced] 200-200-20 mg/5 mL suspension 15 ml PO QID PRN (Reason: dyspepsia) Qty: 3000 0RF Rx Instructions: administer between meals and at bedtime famotidine [Pepcid] 20 mg tablet 20 mg PO BID Qty: 20 0RF No Action baclofen 10 mg tablet 10 mg PO TID Qty: 12 0RF ibuprofen 600 mg tablet 600 mg PO TID PRN (Reason: pain) Qty: 30 0RF naproxen 500 mg tablet 500 mg PO BID PRN (Reason: pain) Qty: 20 0RF cyclobenzaprine 5 mg tablet 5 mg PO TID PRN (Reason: muscle spasm) Qty: 10 0RF lidocaine 4 % adhesive patch,medicated 1 patch topical DAILY PRN (Reason: pain) Qty: 5 0RF ibuprofen 600 mg tablet 600 mg PO TID PRN (Reason: pain) Qty: 30 0RF acetaminophen 500 mg capsule 1,000 mg PO Q6H PRN (Reason: pain) Qty: 30 0RF methocarbamol 750 mg tablet 750 mg PO HS Qty: 7 0RF cephalexin 500 mg capsule 500 mg PO Q6H 7 Days Qty: 28 0RF Follow-up/Referrals: PHYSICIAN,AUTO RADIO MECHANIC [Primary Care Provider, Internal Medicine] Stand Alone Forms: Work/School Release IP Time of Disposition: 06:48
--- NOTE | 2024-11-06 05:27 | ECG_ITS ---
Test Date: 2024-11-06 05:41:37 Measurements Intervals [place] Rate: 57 P: 12 [place]: 148 QRS: 10 QRSD: 85 T: 14 QT: 395 QTc: 385 Interpretive Statements SINUS BRADYCARDIA BORDERLINE R WAVE PROGRESSION, ANTERIOR LEADS BORDERLINE T WAVE ABNORMALITY- ANT/INF LEADS BASELINE ARTIFACT- I, II, III, AVR, AVL, AVF BORDERLINE ECG Compared to ECG 11/06/2024 02:24:07 HEART RATE HAS DECREASED Electronically Signed On 11-06-2024 06:26:20 CDT by Reese Milian D.O.
[2024-11-06 06:19] VITALS: BP 114/70; PULSE 66; RESP 18; O2SAT 97
[2024-11-06 06:34] LABS: Troponin I < 0.012 ng/mL (0.000-0.034)
[2024-11-06 06:56] VITALS: BP 121/73; PULSE 62; RESP 18; O2SAT 99
== END 2024-11-06 06:56 | disposition home or self-care (01) ==
PROVIDERS: Emergency Provider Student in an Organized Health Care Education/Training Program
DX: K29.70 Gastritis, unspecified, without bleeding (principal); R07.9 Chest pain, unspecified; R94.31 Abnormal electrocardiogram [ECG] [EKG]; R00.1 Bradycardia, unspecified
CPT/HCPCS: 36415; 71046; 80053; 83690; 84484; 85025; 85610; 85730; 93005; 96374; 99284; A9270